=== PATIENT | female | born 1985 | race Caucasian/White ===

== ENCOUNTER 2023-02-12 16:58 | Outpatient (CLI) | payer OTHER, SELFPAY ==
[2023-02-12 17:12] LABS: Hematocrit 36.1 % (37.0-47.0); Hemoglobin 12.1 g/dL (12.0-15.0); Mean Corpuscular HGB Conc 33.5 g/dl (32-36); Mean Corpuscular Hemoglobin 31.5 pg (26-34); Platelet Count Result 226 k/mm3 (150-375); Red Blood Count 3.84 M/mm3 (4.2-5.4); Red Cell Distribution Width 12.2 % (11.5-14.5); White Blood Count 9.6 K/mm3 (4.5-10.0)
== END 2023-02-12 16:59 | disposition home or self-care (01) ==
LOC: ANHLAB 17:00
PROVIDERS: Visit Provider Obstetrics & Gynecology
DX: Z30.2 Encounter for sterilization (principal)
CPT/HCPCS: 36415; 85027

== ENCOUNTER 2023-02-20 00:48 | Day surgery (SDC) | payer OTHER, SELFPAY ==
[2023-02-12 10:06] VITALS: BMI 31.6
--- NOTE | 2023-02-12 10:28 | PC.NURSE ---
Report to the Outpatient Waiting Room, entrance under the green pavilion located off [facility], at 0800 on 02-20-23. Planned Procedure Time: 1000. Time changes happen often and if your time is changed the preop area will call you the afternoon before. - You and your visitor will be asked to self-screen and do not enter if you have any COVID symptoms. - A mask is optional within the hospital at this time. Patients may have clear liquids (water, carbonated beverages, clear teas, apple juice) until 3 hours prior to surgery with a maximum of 20 ounces. 0700 - No food from midnight until time of surgery - Infants may have breast milk until 4 hours before surgery, formula 6 hours prior to surgery. - Children will be allowed to drink immediately following surgery. If applicable, please bring a bottle or sippy cup to assist with drinking. Juice, water, soda, and popsicles are readily available. For infants on formula, please bring formula the day of surgery. Pacifiers are allowed. Take the following medications with a SIP of water the morning of surgery: sertraline, control DO NOT STOP ANY OF YOUR OTHER PRESCRIPTION MEDICATIONS PRIOR TO SURGERY ?EXCEPT THE FOLLOWING Medications to discontinue per physician: N/A Please no make-up, nail [place], hairspray, perfume, deodorant, or body powder the day of surgery. No jewelry (including any body piercings) or valuables the day of surgery, leave them at home. Please take a shower or bath the night before, or the morning of, surgery with an antibacterial soap. Wear comfortable, loose fitting clothing. Children are encouraged to wear pajamas. - Jewelry must be removed prior to entering the operating room. Rings and piercings that are not removed may be cut off. - The hospital will not accept responsibility for valuables. - Please leave all valuables, including medications, at home the day of surgery. If you are going home after surgery, a licensed cdl driver must drive you home. - NO public transportation without another adult if you receive anesthesia. - We recommend that an adult stay with you for 24 hours following discharge. - We also recommend that you do not drive, make important decision, drink alcoholic beverages, or take any drugs that were not prescribed by your health care provider for at least 24 hours after your discharge time. For Pediatric surgeries, we recommend two adults accompany the child home. Follow any additional instructions given to you from your surgeon. If you or anyone in your household have experienced Covid symptoms in the past week, please notify your surgeon or the nurse liaison at the phone number below for possible testing. Telephone instructions given to Kelly Atkinson and asked if any additional questions and then verbalized understanding. Patient advised to call surgeon office or pre surgery nurse liaison [phone] if any additional questions.
--- NOTE | 2023-02-19 08:18 | PM.IMHP ---
H&P: HPI History of Present Illness Date/Time: 02/19/23 08:18 37-year-old 4 para 3013 female presents for sterilization procedure. We have discussed alternatives and nonpermanent measures and she does not desire. Strongly desires a permanent form of sterilization. We have discussed the risks benefits increased risk of ectopic and regret as well as failure rate. Patient understands, questions have been answered, consents to the procedure. Chief Complaint: undesired fertility Review of Systems Review of Systems: All systems reviewed & are unremarkable except as noted in HPI and below PMFSH Past Medical History Medical History Acute anxiety Cholecystectomy planned Encounter for screening colonoscopy Mammogram normal 2 years ago felt lump normal per pt -nm Surgical History Surgical History History of appendectomy Family History Family History Sibling Kidney disease Grandparent Hypertension Social History Social History Years smoked: 10 Smoking status: Former smoker Tobacco type: cigarettes Second hand tobacco smoke exposure: Yes Smoking end date: 10/13/12 Alcohol intake: current Alcohol use details: seldomly < than 5 times a year Substance use: current Substance use type: marijuana Living arrangements: with family Occupation/Education: occupation 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 Gender identity (if verbalized by the patient): Female Sexual Orientation (if Verbalized by the Patient): Straight or Heterosexual Spiritual care concerns: No Meds Home Medications and Allergies Home Medications Medication Instructions Recorded Confirmed Type etonogestrel 0.12 mg-ethinyl 1 vag ring vaginal ONCE 01/06/23 02/12/23 History estradiol 0.015 mg/24 hr vaginal ring (NuvaRing) sertraline 100 mg tablet (Zoloft) 100 mg PO DAILY 01/06/23 02/12/23 History Allergies Allergy/AdvReac Type Severity Reaction Status Date / Time No Known Allergies Allergy Verified 02/12/23 10:03 Exam Const: General: cooperative, healthy appearing and comfortable Resp: Effort & Inspection: normal respiratory effort Auscultation: clear to auscultation bilaterally Cardio: Rate: regular rate Rhythm: regular rhythm GI: Inspection: normal to inspection Auscultation: normal bowel sounds : External Female Exam: normal external appearance Speculum Exam - Vagina: normal appearance of the vagina Speculum Exam - Cervix: normal appearance of the cervix Bimanual exam- vagina & uterus: normal bimanual exam Bimanual Exam- Adnexa, other: normal adnexae Assessment and Plan Assessment and plan (1) Encounter for female sterilization procedure: Code(s): Z30.2 - Encounter for sterilization Status: Acute Plan 1. Proceed with laparoscopic bilateral salpingectomy
[2023-02-20] VITALS (9 sets, daily range): BP systolic 125–143; BP diastolic 76–86; PULSE 51–72; RESP 16–22; TEMP 36.7–36.8; O2SAT 96–100
--- NOTE | 2023-02-20 07:23 | WPDHPUPDATE1 ---
History and Physical Update Update Date/Time: 02/20/23 07:23 History and Physical has been reviewed, including an updated exam of the patient. There are NO changes in the patient's condition. Risks, benefits, and alternatives have been discussed and questions answered. Patient agrees to proceed with procedure.
[2023-02-20] MEDS: ACETAMINOPHEN 500 MG TABLET 1000 MG PO (08:45)
[2023-02-20] MEDS: LACTATED RINGERS 1,000 ML 30 ML IV CONT (08:45)
--- NOTE | 2023-02-20 09:19 | P.PNAN_ITS ---
Anes - Initial Pre Proc Eval Procedure: Operation Date: 02/20/23 10:00 Proposed Procedures p Bilateral Laparoscopic Salpingectomy - Young Silva MD Date/Time: 02/20/23 09:19 Surgeon: Young Silva MD Pre Op Diagnosis: Desire Sterilization Patient Data Age: 37 Gender: F Height: 1.65 m Weight: 90.8 kg Last Vital Signs Temp 36.8 C 02/20/23 08:47 Pulse 58 L 02/20/23 08:47 Resp 16 02/20/23 08:47 BP 126/80 02/20/23 08:47 Pulse Ox 100 02/20/23 08:47 O2 Del Method Room Air 02/20/23 08:47 Allergies Allergy/AdvReac Type Severity Reaction Status Date / Time No Known Allergies Allergy Verified 02/20/23 08:22 Home Medications Medication Instructions Recorded Confirmed Type etonogestrel 0.12 mg-ethinyl 1 vag ring vaginal ONCE 01/06/23 02/20/23 History estradiol 0.015 mg/24 hr vaginal ring (NuvaRing) sertraline 100 mg tablet (Zoloft) 100 mg PO DAILY 01/06/23 02/20/23 History Patient hx anesthesia problems: none Family hx anesthesia problems: none Results Review: All pre-operative results and documents have been reviewed as part of the pre- operative evaluation. [facility] Past Medical History Medical History Acute anxiety Cholecystectomy planned Encounter for screening colonoscopy Mammogram normal 2 years ago felt lump normal per pt -nm Surgical History Surgical History History of appendectomy Family History Family History Sibling Kidney disease Grandparent Hypertension Social History Social History Years smoked: 10 Smoking status: Former smoker Tobacco type: cigarettes Second hand tobacco smoke exposure: Yes Smoking end date: 10/13/12 Alcohol intake: current Alcohol use details: seldomly < than 5 times a year Substance use: current Substance use type: marijuana Living arrangements: with family Occupation/Education: occupation Additional occupation/education comments: News Reporter Gender identity (if verbalized by the patient): Female Sexual Orientation (if Verbalized by the Patient): Straight or Heterosexual Spiritual care concerns: No Anes - Eval Final PreProcedure Day of Procedure 02/20/23 09:19 Patient weight: obese Heart: regular rate and rhythm Lungs: clear to auscultation Airway: Mallampati scale class II Neurological: alert and oriented Last oral intake: >/= 8 hours ASA classification: II Emergent: no Anesthetic plan: proceed Anesthesia type and monitoring: general ETT and standard monitoring Results Review: All pre-operative results and documents have been reviewed as part of the pre- operative evaluation. Informed Consent: The patient's anesthetic plan and its attendant risks and benefits were discussed with the patient/family/POA. Questions were solicited and answers provided to the satisfaction of the patient/family/POA.
[2023-02-20] MEDS: KETOROLAC 15 MG/ML VIAL (*BKC) IV PUSH (09:45)
[2023-02-20] MEDS: SCOPOLAMINE 1.5 MG PATCH TRANSDERM (09:47)
[2023-02-20] MEDS: fentaNYL CITRATE INJ (*CRX) 100 MCG/2 ML VIAL 25 MCG IV PUSH ×4 (11:27→11:40)
--- NOTE | 2023-02-20 11:48 | W.PM.PROC2 ---
Procedure Note - Detailed Date of Procedure 02/20/23 Pre-op Diagnosis 1. Desire Sterilization Post-op Diagnosis Same (2. Adhesions) Procedure Performed 1. Laparoscopic bilateral salpingectomy 2. Laparoscopic adhesiolysis Surgeon Young Silva MD Anesthesia General Findings 1. Uterus tubes are without abnormality 2. Bowel and omental adhesions in area of prior appendectomy Description of Procedure Patient prepped and draped in usual manner for this procedure. Cervical instruments were placed for uterine mobility later in the case. Abdominal trocar sites were placed under direct visualization. Using the Harmonic scalpel the mesial salpinx bilaterally was cauterized and cut and the tubes were removed without difficulty. There was no bleeding. Bowel and omental adhesions the area of the prior active that the ectomy were noted and these were sharply taken down with no bleeding and anatomy was restored. At this point the procedure was considered terminated, trocars removed after gas had been this allowed to escape. Incisions approximated using 4-0 Monocryl subcutaneous manner. At this point the procedure was considered terminated and the patient was sent to recovery room in stable condition. Estimated Blood Loss 10 Drains No Packing No Pathology Yes Complications No immediate complications Condition Stable Disposition PACU [facility] Billing Surgery - Charge Forward: Surgery Billing
[2023-02-20] MEDS: oxyCODONE HCL (*CRX) 5 MG TAB IR PO (12:00)
== END 2023-02-20 12:52 | disposition home or self-care (01) ==
PROVIDERS: PCP Family Medicine; Visit Provider Obstetrics & Gynecology
PROC: (CPT 49320; principal; 2023-02-20 10:00)
DX: Z30.2 Encounter for sterilization (principal); K66.0 Peritoneal adhesions (postprocedural) (postinfection); F41.9 Anxiety disorder, unspecified; Z87.891 Personal history of nicotine dependence; F12.90 Cannabis use, unspecified, uncomplicated; E66.9 Obesity, unspecified; Z68.33 Body mass index [BMI] 33.0-33.9, adult
CPT/HCPCS: 58661; 88302; A9270; J1100; J1885; J2250; J2405; J2704; J3010; J7120